=== PATIENT | male | born 1975 | race Two or more races ===

== ENCOUNTER 2021-02-01 06:50 | Inpatient (IN) | payer SELFPAY ==
[~2021-02-01] VITALS: Ht 170.2 cm; Wt 76.2 kg
[2021-02-01] MEDS ORDERED: IBUPROFEN 600MG TABLET PO STA (07:28)
[2021-02-01] MEDS ORDERED: DEXAMETHASONE 10 MG/ML VIAL IV ONE (07:30)
[2021-02-01] MEDS ORDERED: SODIUM CHLORIDE 0.9% 1,000 ML IV ONE (07:30)
[2021-02-01 08:33] LABS: CHLORIDE 102 mEq/L (98-107)
[2021-02-01 08:34] LABS: BASOPHILS % 0.1 % (0.0-2.0); HEMATOCRIT. 43.6 % (42.0-52.0); HEMOGLOBIN. 15.2 g/dL (14.0-18.0); LYMPHOCYTES % 9.6 % (20.0-50.0); MEAN CORPUSCULAR HEMOGLOBIN 30.1 pg (28.0-32.0); MEAN CORPUSCULAR VOLUME 86.4 fL (80.0-94.0); MEAN PLATELET VOLUME 8.6 fl (7.4-10.4); MONOCYTES % 8.9 % (2.0-8.0); NEUTROPHILS % 81.4 % (40.0-76.0); PLATELET 190 x1000/uL (130-400); RED BLOOD CELL COUNT 5.05 mill/uL (4.7-6.1); RED CELL DISTRIBUTION WIDTH 12.4 % (11.6-14.6)
[2021-02-01 13:51] LABS: CLARITY URINE CLEAR (CLEAR); COLOR URINE DARK YELLOW (YELLOW); KETONES URINE 2+ (NEGATIVE); LEUKOCYTE ESTERASE URINE NEGATIVE (NEGATIVE); NITRITE URINE NEGATIVE (NEGATIVE); OCCULT BLOOD URINE NEGATIVE (NEGATIVE); PROTEIN URINE TRACE (NEGATIVE); SPECIFIC GRAVITY URINE 1.025 (1.005-1.030)
[2021-02-01 22:10] VITALS: BP 115/74
[2021-02-01] MEDS ORDERED: CEFTRIAXONE 1 G PREMIX 50 ML IV SCH (23:15)
[2021-02-01] MEDS ORDERED: ACETAMINOPHEN 325MG TABLET PO PRN (23:15)
[2021-02-01] MEDS ORDERED: ZOLPIDEM TARTRATE 5MG TABLET PO PRN (23:15)
[2021-02-01] MEDS ORDERED: ALBUTEROL 6.7GM HFA INHALER ORI PRN (23:15)
[2021-02-02] VITALS: BP 121/74
[2021-02-02] MEDS: CEFTRIAXONE 1,000 MG in DEXTROSE 5% WATER 50 ML IV SCH (01:21)
[2021-02-02] MEDS: AZITHROMYCIN 500 MG in DEXT 5% WATER 250 ML IV SCH (02:34)
[2021-02-02 04:00] VITALS: BP 97/62
[2021-02-02 06:46] LABS: HEMATOCRIT. 40.7 % (42.0-52.0); HEMOGLOBIN. 14.2 g/dL (14.0-18.0); MEAN CORPUSCULAR HEMOGLOBIN 30.5 pg (28.0-32.0); MEAN CORPUSCULAR VOLUME 87.7 fL (80.0-94.0); MEAN PLATELET VOLUME 9.1 fl (7.4-10.4); PLATELET 227 x1000/uL (130-400); RED BLOOD CELL COUNT 4.64 mill/uL (4.7-6.1); RED CELL DISTRIBUTION WIDTH 12.3 % (11.6-14.6)
[2021-02-02 06:52] LABS: CHLORIDE 102 mEq/L (98-107)
[2021-02-02 08:00] VITALS: BP 96/62
[2021-02-02] MEDS: FAMOTIDINE 20MG TABLET PO SCH ×2 (08:04→20:33)
[2021-02-02] MEDS: DEXAMETHASONE 10 MG/ML VIAL IV SCH (08:04)
[2021-02-02] MEDS: ENOXAPARIN 40MG/0.4ML SYR SUBCUT SCH (08:04)
[2021-02-02 12:00] VITALS: BP 113/59
[2021-02-02] MEDS ORDERED: POTASSIUM CHLORIDE 20MEQ TABLET SR PO NR (15:00)
[2021-02-02 15:28] LABS: PLATELET ESTIMATE NORMAL
[2021-02-02 16:00] VITALS: BP 116/65
[2021-02-02 20:00] VITALS: BP 132/70
[2021-02-03] VITALS: BP 124/68
[2021-02-03] MEDS: CEFTRIAXONE 1,000 MG in DEXTROSE 5% WATER 50 ML IV SCH (00:20)
[2021-02-03] MEDS: AZITHROMYCIN 500 MG in DEXT 5% WATER 250 ML IV SCH (03:36)
[2021-02-03 04:00] VITALS: BP 117/87
[2021-02-03 08:00] VITALS: BP 108/72
[2021-02-03] MEDS: DEXAMETHASONE 10 MG/ML VIAL IV SCH (08:22)
[2021-02-03] MEDS: ENOXAPARIN 40MG/0.4ML SYR SUBCUT SCH (08:22)
[2021-02-03] MEDS: FAMOTIDINE 20MG TABLET PO SCH ×2 (08:22→20:45)
[2021-02-03 12:00] VITALS: BP 116/54
[2021-02-03 16:00] VITALS: BP 111/65
[2021-02-03 20:00] VITALS: BP 118/69
[2021-02-03] MEDS: GUAIFENESIN 600MG ER TABLET PO SCH (20:45)
[2021-02-04] VITALS: BP 112/70
[2021-02-04] MEDS: CEFTRIAXONE 1,000 MG in DEXTROSE 5% WATER 50 ML IV SCH (00:13)
[2021-02-04] MEDS: AZITHROMYCIN 500 MG in DEXT 5% WATER 250 ML IV SCH (03:35)
[2021-02-04 04:00] VITALS: BP 116/71
[2021-02-04 08:00] VITALS: BP 115/71
[2021-02-04] MEDS: GUAIFENESIN 600MG ER TABLET PO SCH ×2 (08:24→21:01)
[2021-02-04] MEDS: ENOXAPARIN 40MG/0.4ML SYR SUBCUT SCH (08:24)
[2021-02-04] MEDS: FAMOTIDINE 20MG TABLET PO SCH ×2 (08:24→21:01)
[2021-02-04] MEDS: DEXAMETHASONE 10 MG/ML VIAL IV SCH (08:25)
[2021-02-04 12:00] VITALS: BP 125/68
[2021-02-04 16:00] VITALS: BP 124/73
[2021-02-04 20:00] VITALS: BP 128/74
[2021-02-04] MEDS ORDERED: AZITHROMYCIN 500 MG TABLET PO SCH (21:00)
[2021-02-05] VITALS: BP 122/76
[2021-02-05] MEDS: CEFTRIAXONE 1,000 MG in DEXTROSE 5% WATER 50 ML IV SCH (00:12)
[2021-02-05 04:00] VITALS: BP 122/70
[2021-02-05 07:52] VITALS: BP 127/76
[2021-02-05] MEDS: FAMOTIDINE 20MG TABLET PO SCH (08:18)
[2021-02-05] MEDS: ENOXAPARIN 40MG/0.4ML SYR SUBCUT SCH (08:18)
[2021-02-05] MEDS: GUAIFENESIN 600MG ER TABLET PO SCH (08:18)
[2021-02-05] MEDS: DEXAMETHASONE 10 MG/ML VIAL IV SCH (08:18)
[2021-02-05 12:00] VITALS: BP 117/72
[2021-02-05 15:50] VITALS: BP 119/72
[2021-02-05 16:35] VITALS: BP 119/72
== END 2021-02-05 17:20 | disposition home or self-care (01) | DRG 720 ==
LOC: ER 06:50 → EDBEDREQ 11:47 → MICUSO 13:04 → EDBEDREQTM 13:06 → EDBEDREQ 13:06 → 7WST 21:29
PROVIDERS: ADMIT Internal Medicine; ATTEND Internal Medicine
DX: A41.89 Other specified sepsis (principal); J96.01 Acute respiratory failure with hypoxia; J12.82 Pneumonia due to coronavirus disease 2019; E44.0 Moderate protein-calorie malnutrition; U07.1 COVID-19; R65.20 Severe sepsis without septic shock; R74.01 Elevation of levels of liver transaminase levels; Z87.891 Personal history of nicotine dependence; Z68.26 Body mass index [BMI] 26.0-26.9, adult
CPT/HCPCS: 36415; 71045; 80053; 81003; 82308; 82728; 83615; 83880; 84145; 84484; 85025; 85379; 86140; 93005; 99291; J0456; J0696; J1100; J1650; J7030; J7040; J7060; U0003; U0005